=== PATIENT | male | born 1975 | race Caucasian/White ===

== ENCOUNTER → 2016-08-14 | Outpatient (CLI) | payer OTHER | LOC: CIMAGING 14:08 | PROVIDERS: ATTEND Family Medicine | DX: M85.811 Other specified disorders of bone density and structure, right shoulder (principal) | CPT/HCPCS: 73030-PO ==

== ENCOUNTER 2017-05-03 17:16 | Emergency (ER) | payer OTHER, MEDICAID ==
[2017-05-03 17:28] VITALS: BP 123/85; PULSE 99; RESP 18; TEMP 99; O2SAT 96
--- NOTE | 2017-05-03 17:38 | EDPHY ---
H & P Time Seen by Provider: 05/03/17 17:24 HPI/ROS: 41-year-old male presents complaining of productive cough for several weeks. He is a smoker. He denies fevers or chills or body aches. He does state that is chronic back pain has been exacerbated by coughing. Review of systems As per HPI General no fever no chills no weakness HEENT no eye pain no eye discharge. No eye redness, no sore throat Respiratory positive cough, no shortness of breath Cardiac no chest pain, no peripheral edema GI no abdominal pain, no diarrhea, no constipation, no nausea, no vomiting no flank pain, no hematuria, no dysuria Musculoskeletal no myalgias, no joint pain, positive back pain Heme no easy bruising, no easy bleeding Endo no polyuria, no polydipsia Skin no rashes, no pruritus Neuro no syncope, no dizziness, no headaches Psych is no suicidal ideation, no homicidal ideation Past Medical/Surgical History: Chronic back pain Social History: Alcohol socially, denies drug use Smoking Status: Current some day smoker Physical Exam: 41-year-old male Alert and oriented nontoxic appearance, no acute distress afebrile Atraumatic normocephalic Extraocular muscles intact, anicteric Nares mild yellowish discharge Oropharynx mild erythema no tonsillar swelling no exudate no uvular deviation, tolerating own secretions Neck supple no lymphadenopathy Lungs clear to auscultation bilaterally, diminished breath sounds left upper lobe Heart regular rate and rhythm Abdomen normoactive bowel sounds soft nontender Back no step-offs, no CVA tenderness no ecchymosis no rash, no swelling Extremities no cyanosis clubbing or edema Skin no rash Constitutional: Initial Vital Signs Temperature (C) 37.2 C 05/03/17 17:26 Heart Rate 99 05/03/17 17:26 Respiratory Rate 18 05/03/17 17:26 Blood Pressure 123/85 H 05/03/17 17:26 O2 Sat (%) 96 05/03/17 17:26 O2 Delivery Mode Room Air Allergies/Adverse Reactions: divalproex sodium [From Depakote] Allergy (Unknown, Verified 05/03/17 17:25) Home Medications: Medication Instructions Recorded AZITHROMYCIN [Z-PACK] 250 mg PO DAILY #6 tab 05/03/17 Cyclobenzaprine [Flexeril 10 MG 10 mg PO TID PRN #15 tab 05/03/17 (*)] Latuda 05/03/17 Medical Decision Making - Diagnostics Imaging Results: Imaging Impressions Chest X-Ray 05/03/17 17:37 Impression: No pneumonia. Mild central bronchitis.. ED Course/Re-evaluation: Patient seen and evaluated for productive cough. Chest x-ray Negative for infiltrate Impression Bronchitis Back spasm Plan [place] Cyclobenzaprine Follow-up PCP Differential Diagnosis: Differential diagnosis considered but not limited to: URI, bronchitis, viral syndrome, influenza, pneumonia Departure - Departure Disposition: Home, Routine, Self-Care Clinical Impression: Acute bronchitis, Back muscle spasm Condition: Good Instructions: Acute Bronchitis (ED) Additional Instructions: Follow up with your primary care in 5-7 days. Referrals: Unknown,Unknown [Primary Care Provider] - As per Instructions Prescriptions: AZITHROMYCIN [Z-PACK] 250 mg PO DAILY #6 tab Cyclobenzaprine [Flexeril 10 MG (*)] 10 mg PO TID PRN #15 tab PRN Reason: Spasms
== END 2017-05-03 17:53 | disposition home or self-care (01) ==
LOC: CED 17:16
DX: J20.9 Acute bronchitis, unspecified (principal); M62.830 Muscle spasm of back; F17.200 Nicotine dependence, unspecified, uncomplicated
CPT/HCPCS: 71020-PO

== ENCOUNTER → 2018-05-20 | Outpatient (CLI) | payer OTHER, MEDICAID | LOC: CIMAGING 13:33 | PROVIDERS: ATTEND Family Medicine | DX: M25.551 Pain in right hip (principal) | CPT/HCPCS: 73502-PO ==